=== PATIENT | male | born 1975 | race Two or more races ===

== ENCOUNTER 2019-12-25 07:00 | Day surgery (SDC) | payer OTHER | END 2019-12-25 12:45 | disposition home or self-care (01) | LOC: AMB-ENDOS 07:00 → CIR.AMB 14:00 | PROVIDERS: ATTEND Colon & Rectal Surgery | DX: D12.8 Benign neoplasm of rectum (principal); Z20.828 Contact with and (suspected) exposure to other viral communicable diseases; K64.2 Third degree hemorrhoids ==